=== PATIENT | female | born 1970 | race Two or more races ===

== ENCOUNTER 2023-05-18 09:06 | Emergency (ER) | payer OTHER ==
[~2023-05-18] VITALS: Ht 165.1 cm; Wt 65.3 kg
[~2023-05-18 09:06] MED LIST: AMOX1TAB12 PO
== END 2023-05-18 12:03 | disposition home or self-care (01) ==
LOC: ER 09:06
DX: M12.561 Traumatic arthropathy, right knee (principal)